=== PATIENT | female | born 1985 | race Caucasian/White ===

== ENCOUNTER 2019-03-27 17:17 | Emergency (ER) | payer SELFPAY ==
[~2019-03-27] VITALS: Ht 162.6 cm; Wt 54.4 kg
[2019-03-27 17:42] VITALS: BP 114/78
[2019-03-27] MEDS ORDERED: IBUPROFEN 600 MG TABLET PO ONE ×2 (18:00→19:16)
== END 2019-03-27 19:59 | disposition home or self-care (01) ==
LOC: ER 17:17
DX: S92.514A Nondisplaced fracture of proximal phalanx of right lesser toe(s), initial encounter for closed fracture (principal); S92.511A Displaced fracture of proximal phalanx of right lesser toe(s), initial encounter for closed fracture; Z88.0 Allergy status to penicillin; W50.1XXA Accidental kick by another person, initial encounter; Y93.89 Activity, other specified; Y92.89 Other specified places as the place of occurrence of the external cause; Y99.8 Other external cause status
CPT/HCPCS: 73660-TC